=== PATIENT | female | born 1965 | race African-American/Black ===

== ENCOUNTER 2017-12-11 09:38 | Emergency (ER) | payer OTHER ==
[~2017-12-11] VITALS: Ht 167.6 cm; Wt 90.0 kg
[~2017-12-11 09:38] MED LIST: AMIO200T2 PO; AMLO2.5T PO; ASPI81TA39 PO; HYDR10TA31 PO; LOSA25TA21 PO
[2017-12-11] MEDS ORDERED: CARV3 PO (09:46)
[2017-12-11] MEDS ORDERED: FURO20 PO (09:46)
[2017-12-11 10:01] VITALS: BP 149/111
[2017-12-11] MEDS ORDERED: IBUPROFEN 800 MG TABLET PO ONE (10:15)
== END 2017-12-11 11:51 | disposition home or self-care (01) ==
LOC: EMS 09:39
DX: S82.831A Other fracture of upper and lower end of right fibula, initial encounter for closed fracture (principal); I25.10 Atherosclerotic heart disease of native coronary artery without angina pectoris; I11.0 Hypertensive heart disease with heart failure; I50.9 Heart failure, unspecified; F17.210 Nicotine dependence, cigarettes, uncomplicated; F15.90 Other stimulant use, unspecified, uncomplicated; Z95.0 Presence of cardiac pacemaker; Z88.5 Allergy status to narcotic agent; Z79.82 Long term (current) use of aspirin; W01.0XXA Fall on same level from slipping, tripping and stumbling without subsequent striking against object, initial encounter; Y93.89 Activity, other specified; Y92.89 Other specified places as the place of occurrence of the external cause; Y99.8 Other external cause status
CPT/HCPCS: 29515; 99284; 99406

== ENCOUNTER 2017-12-17 07:31 | Emergency (ER) | payer OTHER ==
[~2017-12-17] VITALS: Ht 167.6 cm; Wt 90.0 kg
[~2017-12-17 07:31] MED LIST changes: +CARV3 PO; +FURO20 PO; -HYDR10TA31 PO
[2017-12-17] MEDS ORDERED: HYDR-309 PO (07:39)
[2017-12-17 08:09] VITALS: BP 179/123
== END 2017-12-17 09:50 | disposition left against medical advice (07) ==
LOC: EMS 07:43
DX: M25.571 Pain in right ankle and joints of right foot (principal); Z53.21 Procedure and treatment not carried out due to patient leaving prior to being seen by health care provider

== ENCOUNTER 2021-09-14 12:23 | Emergency (ER) | payer OTHER ==
[~2021-09-14 12:23] MED LIST changes: +AMIO200 PO; -AMIO200T2 PO; -AMLO2.5T PO; +AMLO2.5T96 PO; +HYDR-309 PO; +LOSA-381 PO; -LOSA25TA21 PO
== END 2021-09-14 13:45 | disposition left against medical advice (07) ==
LOC: EMS 12:32
DX: L08.9 Local infection of the skin and subcutaneous tissue, unspecified (principal); Z53.21 Procedure and treatment not carried out due to patient leaving prior to being seen by health care provider

== ENCOUNTER 2022-02-01 10:53 | Emergency (ER) | payer OTHER ==
[~2022-02-01] VITALS: Ht 167.6 cm; Wt 90.9 kg
[2022-02-01 12:59] VITALS: BP 180/120
[2022-02-01] MEDS ORDERED: HYDR10TA31 PO (12:59)
[2022-02-01] MEDS ORDERED: AMIO100T4 PO (12:59)
[2022-02-01] MEDS ORDERED: LOSA-382 PO (12:59)
[2022-02-01] MEDS ORDERED: ATOR10TA69 PO (12:59)
== END 2022-02-01 13:20 | disposition home or self-care (01) ==
LOC: EMS 10:58
DX: M79.602 Pain in left arm (principal); M79.601 Pain in right arm; F10.20 Alcohol dependence, uncomplicated; F15.90 Other stimulant use, unspecified, uncomplicated; F17.210 Nicotine dependence, cigarettes, uncomplicated; I25.10 Atherosclerotic heart disease of native coronary artery without angina pectoris; I10 Essential (primary) hypertension; I50.9 Heart failure, unspecified
CPT/HCPCS: 99283